=== PATIENT | male | born 1995 | race Two or more races ===

== ENCOUNTER 2020-03-07 18:46 | Inpatient (IN) | payer OTHER ==
[~2020-03-07] VITALS: Ht 165.1 cm; Wt 94.8 kg
[2020-03-07] MEDS ORDERED: SODIUM CHLORIDE 0.9% 1,000 ML IV ONE (20:00)
[2020-03-07] MEDS ORDERED: ACETAMINOPHEN 500 MG TABLET PO ONE (20:00)
[2020-03-07 21:46] LABS: BASOPHILS % (AUTO) 0.5 % (0.0-2.0); EOSINOPHILS % (AUTO) 2.2 % (1.0-6.0); HEMATOCRIT 44.3 % (41-53); LYMPHOCYTES % (AUTO) 19.9 % (22.0-44.0); MEAN CORPUSCULAR HEMOGLOBIN 31.9 pg (26.0-34.0); MEAN CORPUSCULAR HGB CONC 33.8 G/dL (31.0-37.0); MEAN CORPUSCULAR VOLUME 94 fL (80-100); MONOCYTES % (AUTO) 9.5 % (2.0-9.0); NEUTROPHILS % (AUTO) 67.9 % (40.0-70.0); PLATELET COUNT (AUTO) 437 K/uL (150-450); RED BLOOD CELL COUNT(AUTO) 4.69 MIL/uL (4.50-5.90); RED CELL DISTRIBUTION WIDTH 12.6 % (11.5-14.5)
[2020-03-07 22:01] LABS: ANION GAP 7 mmol/L (8-16); CALCIUM, TOTAL 8.5 mg/dL (8.8-10.5); CARBON DIOXIDE 29 mmol/L (22-29); CHLORIDE 104 mmol/L (98-107); CREATININE 0.79 mg/dL (0.60-1.30); GLOMERULAR FILTR. RATE CALC > 60 mL/min (>60); GLUCOSE,RANDOM 93 mg/dL (70-110); POTASSIUM 3.6 mmol/L (3.5-5.1); SODIUM SERUM 140 mmol/L (136-145); UREA NITROGEN, BLOOD 7 mg/dL (7-18)
[2020-03-07 22:06] LABS: ALANINE AMINOTRANSFERASE 93 U/L (12-78); ALBUMIN 3.5 g/dL (3.4-5.0); ALKALINE PHOSPHATASE 67 U/L (46-116); ASPARTATE AMINOTRANSFERASE 42 U/L (15-37); BILIRUBIN,TOTAL 0.5 mg/dL (0.1-1.0); TOTAL PROTEIN, SERUM 7.1 g/dL (6.4-8.2)
[2020-03-07] MEDS ORDERED: [UNRECOGNIZED DRUG - OTHER] PO (22:27)
[2020-03-07] MEDS ORDERED: 0.9% SODIUM CHLORIDE 10 ML SYRINGE IVP PRN (22:30)
[2020-03-07 23:10] VITALS: BP 109/74
[2020-03-08 03:45] VITALS: BP 104/64
[2020-03-08 08:25] VITALS: BP 108/65
[2020-03-08] MEDS ORDERED: ENOXAPARIN SODIUM 40 MG/0.4 ML PF SYRINGE SQ SCH (09:00)
[2020-03-08 16:09] VITALS: BP 123/73
[2020-03-08 19:18] VITALS: BP 112/66
[2020-03-09 04:51] VITALS: BP 111/61
[2020-03-09 08:04] VITALS: BP 104/60
[2020-03-09 16:17] VITALS: BP 110/54
[2020-03-09 19:24] VITALS: BP 127/84
[2020-03-10] VITALS: BP 105/60
[2020-03-10 07:51] VITALS: BP 113/65
[2020-03-10 20:48] VITALS: BP 119/66
[2020-03-11 04:05] VITALS: BP 115/65
[2020-03-11 08:25] VITALS: BP 112/58
[2020-03-11 16:05] VITALS: BP 133/84
[2020-03-11 20:55] VITALS: BP 115/71
[2020-03-12 04:42] VITALS: BP 114/75
[2020-03-12] MEDS: ACETAMINOPHEN 325 MG TABLET PO PRN (17:04)
[2020-03-12] MEDS: DiphenhydrAMINE HCL 25 MG CAPSULE PO PRN (19:45)
[2020-03-12 20:31] VITALS: BP 127/78
[2020-03-13 00:35] VITALS: BP 131/72
[2020-03-13 05:27] VITALS: BP 121/74
[2020-03-13 08:33] VITALS: BP 105/61
[2020-03-13 16:28] VITALS: BP 116/72
[2020-03-13] MEDS: ACETAMINOPHEN 325 MG TABLET PO PRN (20:11)
[2020-03-13] MEDS: DiphenhydrAMINE HCL 25 MG CAPSULE PO PRN (20:11)
[2020-03-13 20:21] VITALS: BP 132/76
[2020-03-14 03:45] VITALS: BP 104/64
[2020-03-14 16:46] VITALS: BP 120/78
[2020-03-14 20:00] VITALS: BP 126/76
[2020-03-14] MEDS: DiphenhydrAMINE HCL 25 MG CAPSULE PO PRN (20:53)
[2020-03-15 05:59] VITALS: BP 119/68
[2020-03-15 08:40] VITALS: BP 111/60
[2020-03-15 11:13] LABS: BASOPHILS % (AUTO) 1.1 % (0.0-2.0); EOSINOPHILS % (AUTO) 2.6 % (1.0-6.0); HEMATOCRIT 46.9 % (41-53); HEMOGLOBIN 16.3 g/dL (13.5-17.5); LYMPHOCYTES # (AUTO) 1.4 K/uL (1.0-4.8); LYMPHOCYTES % (AUTO) 17.6 % (22.0-44.0); MEAN CORPUSCULAR HEMOGLOBIN 33.2 pg (26.0-34.0); MEAN CORPUSCULAR HGB CONC 34.7 G/dL (31.0-37.0); MEAN CORPUSCULAR VOLUME 96 fL (80-100); MONOCYTES # (AUTO) 0.8 K/uL (0.1-1.0); MONOCYTES % (AUTO) 10.1 % (2.0-9.0); NEUTROPHILS # (AUTO) 5.3 K/uL (1.8-7.7); NEUTROPHILS % (AUTO) 68.6 % (40.0-70.0); PLATELET COUNT (AUTO) 440 K/uL (150-450); RED CELL DISTRIBUTION WIDTH 13.1 % (11.5-14.5)
[2020-03-15 12:15] LABS: ALANINE AMINOTRANSFERASE 70 U/L (12-78); ALBUMIN 3.9 g/dL (3.4-5.0); ALKALINE PHOSPHATASE 72 U/L (46-116); ANION GAP 7 mmol/L (8-16); ASPARTATE AMINOTRANSFERASE 31 U/L (15-37); BILIRUBIN,TOTAL 0.4 mg/dL (0.1-1.0); CALCIUM, TOTAL 9.3 mg/dL (8.8-10.5); CARBON DIOXIDE 32 mmol/L (22-29); CHLORIDE 103 mmol/L (98-107); CREATININE 0.88 mg/dL (0.60-1.30); GLOMERULAR FILTR. RATE CALC > 60 mL/min (>60); GLUCOSE,RANDOM 73 mg/dL (70-110); POTASSIUM 4.3 mmol/L (3.5-5.1); SODIUM SERUM 142 mmol/L (136-145); UREA NITROGEN, BLOOD 11 mg/dL (7-18)
[2020-03-15 16:35] VITALS: BP 115/66
[2020-03-15 21:00] VITALS: BP 109/69
[2020-03-15] MEDS: ACETAMINOPHEN 325 MG TABLET PO PRN (21:42)
[2020-03-15] MEDS: BENZONATATE 100 MG CAPSULE PO PRN (21:42)
[2020-03-15] MEDS: DiphenhydrAMINE HCL 25 MG CAPSULE PO PRN (21:42)
[2020-03-16 04:29] VITALS: BP 108/62
[2020-03-16 08:38] VITALS: BP 111/62
[2020-03-16 20:00] VITALS: BP 117/72
[2020-03-16] MEDS: DiphenhydrAMINE HCL 25 MG CAPSULE PO PRN (21:20)
[2020-03-17 08:53] VITALS: BP 107/68
[2020-03-17] MEDS: ACETAMINOPHEN 325 MG TABLET PO PRN (16:59)
[2020-03-17 19:26] VITALS: BP 120/68
[2020-03-17] MEDS: DiphenhydrAMINE HCL 25 MG CAPSULE PO PRN (20:58)
[2020-03-17] MEDS: BENZONATATE 100 MG CAPSULE PO PRN (20:58)
[2020-03-18 06:39] LABS: BASOPHILS % (AUTO) 1.1 % (0.0-2.0); EOSINOPHILS % (AUTO) 4.4 % (1.0-6.0); HEMATOCRIT 44.6 % (41-53); HEMOGLOBIN 15.4 g/dL (13.5-17.5); LYMPHOCYTES # (AUTO) 2.8 K/uL (1.0-4.8); LYMPHOCYTES % (AUTO) 31.2 % (22.0-44.0); MEAN CORPUSCULAR HEMOGLOBIN 33.2 pg (26.0-34.0); MEAN CORPUSCULAR HGB CONC 34.6 G/dL (31.0-37.0); MEAN CORPUSCULAR VOLUME 96 fL (80-100); MONOCYTES # (AUTO) 0.9 K/uL (0.1-1.0); MONOCYTES % (AUTO) 9.8 % (2.0-9.0); NEUTROPHILS # (AUTO) 4.9 K/uL (1.8-7.7); NEUTROPHILS % (AUTO) 53.5 % (40.0-70.0); PLATELET COUNT (AUTO) 377 K/uL (150-450); RED BLOOD CELL COUNT(AUTO) 4.64 MIL/uL (4.50-5.90); RED CELL DISTRIBUTION WIDTH 12.9 % (11.5-14.5)
[2020-03-18 07:08] LABS: ANION GAP 4 mmol/L (8-16); CALCIUM, TOTAL 8.9 mg/dL (8.8-10.5); CARBON DIOXIDE 31 mmol/L (22-29); CHLORIDE 103 mmol/L (98-107); CREATININE 0.74 mg/dL (0.60-1.30); GLOMERULAR FILTR. RATE CALC > 60 mL/min (>60); GLUCOSE,RANDOM 78 mg/dL (70-110); POTASSIUM 3.7 mmol/L (3.5-5.1); SODIUM SERUM 138 mmol/L (136-145); UREA NITROGEN, BLOOD 11 mg/dL (7-18)
[2020-03-18 08:43] VITALS: BP 104/58
[2020-03-18 20:05] VITALS: BP 106/66
[2020-03-18] MEDS: DiphenhydrAMINE HCL 25 MG CAPSULE PO PRN (23:46)
[2020-03-19 05:13] VITALS: BP 100/61
[2020-03-19 06:45] LABS: BASOPHILS % (AUTO) 1.1 % (0.0-2.0); EOSINOPHILS % (AUTO) 4.5 % (1.0-6.0); HEMATOCRIT 46.3 % (41-53); HEMOGLOBIN 15.5 g/dL (13.5-17.5); LYMPHOCYTES # (AUTO) 3.3 K/uL (1.0-4.8); LYMPHOCYTES % (AUTO) 30.6 % (22.0-44.0); MEAN CORPUSCULAR HEMOGLOBIN 32.2 pg (26.0-34.0); MEAN CORPUSCULAR HGB CONC 33.5 G/dL (31.0-37.0); MEAN CORPUSCULAR VOLUME 96 fL (80-100); MONOCYTES # (AUTO) 1.1 K/uL (0.1-1.0); MONOCYTES % (AUTO) 10.3 % (2.0-9.0); NEUTROPHILS # (AUTO) 5.7 K/uL (1.8-7.7); NEUTROPHILS % (AUTO) 53.5 % (40.0-70.0); PLATELET COUNT (AUTO) 369 K/uL (150-450); RED BLOOD CELL COUNT(AUTO) 4.83 MIL/uL (4.50-5.90); RED CELL DISTRIBUTION WIDTH 13.2 % (11.5-14.5)
[2020-03-19 07:43] VITALS: BP 107/57
[2020-03-19 15:15] VITALS: BP 110/58
[2020-03-19 20:20] VITALS: BP 133/74
[2020-03-19] MEDS: DiphenhydrAMINE HCL 25 MG CAPSULE PO PRN (22:37)
[2020-03-20 04:30] VITALS: BP 94/55
[2020-03-20 08:10] LABS: EOSINOPHILS % (AUTO) 4.9 % (1.0-6.0); HEMATOCRIT 44.1 % (41-53); HEMOGLOBIN 15.5 g/dL (13.5-17.5); LYMPHOCYTES # (AUTO) 2.7 K/uL (1.0-4.8); LYMPHOCYTES % (AUTO) 29.6 % (22.0-44.0); MEAN CORPUSCULAR HEMOGLOBIN 33.5 pg (26.0-34.0); MEAN CORPUSCULAR HGB CONC 35.1 G/dL (31.0-37.0); MEAN CORPUSCULAR VOLUME 95 fL (80-100); MONOCYTES # (AUTO) 0.9 K/uL (0.1-1.0); MONOCYTES % (AUTO) 9.9 % (2.0-9.0); NEUTROPHILS % (AUTO) 54.6 % (40.0-70.0); PLATELET COUNT (AUTO) 387 K/uL (150-450); RED BLOOD CELL COUNT(AUTO) 4.62 MIL/uL (4.50-5.90)
== END 2020-03-20 07:45 | DRG 179 ==
LOC: EMS 18:48 → 6N 22:31
PROVIDERS: ADMIT Internal Medicine; ATTEND Internal Medicine
DX: U07.1 COVID-19 (principal); E66.9 Obesity, unspecified; Z68.34 Body mass index [BMI] 34.0-34.9, adult; F17.210 Nicotine dependence, cigarettes, uncomplicated; F12.90 Cannabis use, unspecified, uncomplicated; Z78.9 Other specified health status
CPT/HCPCS: 85379; 87040; J1650; J7030; 36415-L1; 36415-TC; 71045-TC; U0003-CS